=== PATIENT | male | born 1990 | race Caucasian/White ===

== ENCOUNTER 2017-11-03 14:43 | Emergency (ER) | payer SELFPAY ==
[~2017-11-03] VITALS: Ht 175.3 cm; Wt 84.8 kg
[2017-11-03] MEDS ORDERED: HUMALOG100 UNITS/ IV (15:26)
== END 2017-11-03 17:40 | disposition home or self-care (01) ==
LOC: ED 14:43
DX: Z76.0 Encounter for issue of repeat prescription (principal); R21 Rash and other nonspecific skin eruption; E10.9 Type 1 diabetes mellitus without complications
CPT/HCPCS: 99282